=== PATIENT | female | born 1995 | race Caucasian/White ===

== ENCOUNTER 2017-12-26 20:15 | Observation (INO) | payer OTHER ==
[~2017-12-26] VITALS: Ht 177.8 cm; Wt 66.5 kg
[~2017-12-26 20:15] MED LIST: ANTIVERT25 MG PO; IRON325 PO; KEFLEX500 MG PO; MEDROL DOSPAK21 TA1 PO; MEDROLDOSEPACK PO; NORCO 5-325 TA1 EACH PO; ROBAXIN500 MG PO; TRAMADOL 50 MG50 MG PO; [UNRECOGNIZED DRUG - REMARK] PO
[2017-12-26 20:21] VITALS: BP 121/66
[2017-12-26] MEDS ORDERED: IRON325 PO (20:28)
[2017-12-26] MEDS ORDERED: VITAMIN D1000 UNI1 PO (20:28)
[2017-12-26 21:09] LABS: ABSOLUTE BASOPHILS 0.1 thou/uL (0.0-0.2); ABSOLUTE LYMPHOCYTES 2.8 thou/uL (0.8-5.3); ABSOLUTE MONOCYTES 0.9 thou/uL (0.0-1.2); ABSOLUTE NEUTROPHILS 5.5 thou/uL (1.6-8.1); BASOPHILS 0.7 %; EOSINOPHILS 0.4 %; HEMOGLOBIN 13.5 gm/dL (12.0-15.0); LYMPHOCYTES 30.2 %; MCH 29.8 pg (26.0-34.0); MCHC 33.9 g/dL (28.0-37.0); MONOCYTES 9.2 %; MPV 8.8 fl. (7.2-11.1); NUCLEATED RBCS 0 /100WBC; PLATELET COUNT* 258 thou/uL (150-400); POLYS 59.5 %; RBC 4.54 mil/uL (4.20-5.00); RDW-CV 13.3 % (10.5-14.5); WBC 9.3 thou/uL (4.0-11.0)
[2017-12-26 21:13] LABS: URINE BILIRUBIN NEGATIVE (Negative); URINE BLOOD NEGATIVE (Negative); URINE CLARITY CLEAR; URINE COLOR YELLOW; URINE GLUCOSE-RANDOM NEGATIVE (Negative); URINE KETONES NEGATIVE (Negative); URINE LEUKOCYTES-REFLEX 1+ (Negative); URINE NITRITE-REFLEX NEGATIVE (Negative); URINE PROTEIN NEGATIVE (Negative); URINE SPECIFIC GRAVITY 1.015 (1.005-1.030); URINE UROBILINOGEN 0.2 E.U./dl (0.2-1.0)
[2017-12-26 21:18] LABS: CALCIUM 9.1 mg/dL (8.5-10.1); POTASSIUM 3.5 mmol/L (3.5-5.1)
[2017-12-26 21:21] LABS: CASTS None Seen /LPF (None Seen); CRYSTALS None Seen /LPF (None Seen); MUCUS None Seen strn/LPF (None Seen); SQUAMOUS 4-10 Moderate /LPF (0-3); URINE WBC-REFLEX 0-5 Rare /HPF (0-5)
[2017-12-26 21:22] LABS: BACTERIA-REFLEX 1-9 Few /HPF (None Seen); URINE RBC None Seen /HPF (0-2)
[2017-12-26 21:23] LABS: ALBUMIN 3.6 g/dL (3.4-5.0); TOTAL BILIRUBIN 0.2 mg/dL (<0.1-1.0); TOTAL PROTEIN 7.4 g/dL (6.4-8.2)
[2017-12-26 23:55] VITALS: BP 122/66
[2017-12-27 00:05] VITALS: BP 121/78
--- NOTE | 2017-12-27 00:51 | NUR ---
ALERT AND ORIENTED FEMALE ADMITTED TO BED 114 BY CART FROM ER IN STABLE CONDITION. ADMISSION ROUTINES IN PROGRESS. VITAL SIGNS STABLE. MOTHER AT BEDSIDE. CONTINUE TO MONITOR WITH BLOOD SUGAR CHECKS Q2H.
--- NOTE | 2017-12-27 04:18 | NUR ---
PATIENT HAS REMAINED ALERT AND ORIENTED X 4 FROM ADMISSION. BLOOD SUGARS Q2H OF THIS WRITING WITHIN NORMAL LIMITS. SEE PCI. MOTHER AT BEDSIDE. CONTINUE TO MONITOR.
[2017-12-27 09:00] VITALS: BP 118/57
--- NOTE | 2017-12-27 10:48 | EKG ---
[place] [address] ELECTROCARDIOGRAM REPORT Name: HUA CAROLINA Room: [address] ADM [facility].#: [id number] Admission: 12/26/17 Attend Phys: Fawn Balderas Discharge: Date of : [birth year] Report #: [id number] THIS REPORT FOR: //name// [facility] ED Test Date: 2017-12-26 Test Time: 21:17:39 Pat Name: HUA CAROLINA Department: Room: [facility] Gender: F Warehouse And Receiving Supervisor: BRIEN Cuellar : 1995 Requested By: Radha Avalos Order Number: [id number] MD: Paulino Bourgeois Measurements Intervals [place] Rate: 65 P: 78 PA: 186 QRS: 79 QRSD: 98 T: 56 QT: 389 QTc: 405 Interpretive Statements Sinus rhythm Baseline wander in lead(s) I,III,aVL Compared to ECG 07/25/2015 09:42:32 Sinus arrhythmia no longer present Electronically Signed On 12-27-2017 10:48:13 CDT by Paulino Bourgeois [email or web address] <ELECTRONICALLY SIGNED> By: Paulino Bourgeois MD, FACC 12/27/17 1048 16 16 Paulino Bourgeois MD, [facility] /EPI
[2017-12-27 12:10] VITALS: BP 118/57
--- NOTE | 2017-12-27 12:21 | 2DMMODE ---
[place] [address] 2 D/M-MODE ECHOCARDIOGRAM Name: HUA CAROLINA Room: [address] IN [facility]#: [id number] Admission: 12/26/17 Attend Phys: Collin Bales Discharge: Date of : [birth year] Date of Service: 12/27/17 1221 Report #: [id number] THIS REPORT FOR: //name// APPROVED REPORT Study performed: 12/27/2017 10:47:27 EXAM: Comprehensive 2D, Doppler, and color-flow Echocardiogram Patient Location: In-Patient Room #: 114 Status: routine BSA: 1.79 HR: 63 bpm BP: 118/57 mmHg Rhythm: NSR Other Information Study Quality: Good Indications Syncope Hypoglycemic 2D Dimensions LVEF(%): 55.47 (>50%) IVSd: 8.93 (7-11mm) LVOT Diam: 19.71 (18-24mm) LVDd: 51.91 mm PWd: 9.57 (7-11mm) Ascending Ao: 24.93 (22-36mm) LVDs: 36.81 (25-40mm) Aortic Root: 24.68 mm Regan's LVEF: 55.47 % Volumes Left Atrial Volume (Systole) LA ESV Index: 21.10 mL/m2 Aortic Valve AoV Peak Kody.: 1.47 m/s AO Peak Gr.: 8.60 mmHg LVOT Max P.20 mmHg AO Mean Gr.: 4.90 mmHg LVOT Mean P.43 mmHg LVOT Max V: 1.14 m/s AO V2 VTI: 28.58 cm LVOT Mean V: 0.71 m/s APRIL (VTI): 2.28 cm2 LVOT V1 VTI: 21.39 [place] [address] 2 D/M-MODE ECHOCARDIOGRAM Name: HUA CAROLINA Room: [address] IN [facility]#: [id number] Admission: 12/26/17 Attend Phys: Collin Bales Discharge: Date of : [birth year] Date of Service: 12/27/17 1221 Report #: [id number] E/A Ratio: 1.76 MV Decel. Time: 238.27 ms MV E Max Kody.: 0.80 m/s MV PHT: 69.10 ms MVA (PHT): 3.18 cm2 TDI E/Lateral E': 4.00 E/Medial E': 5.71 Medial E' Kody.: 0.14 m/s Lateral E' Kody.: 0.20 m/s Pulmonary Valve PV Peak Kody.: 1.02 m/s PV Peak Gr.: 4.19 mmHg Tricuspid Valve TR Peak Gr.: 16.27 mmHg RVSP: 21.00 mmHg Left Ventricle The left ventricle is normal size. There is normal LV segmental wall motion. There is normal left ventricular wall thickness. Left ventricular systolic function is normal. The left ventricular ejection fraction is within the normal range. LVEF is 55-60%. The left ventricular diastolic function is normal. Right Ventricle Right ventricle is mildly dilated. The right ventricular systolic function is normal. Atria The left atrium size is normal. Right atrium is mildly dilated. Aortic Valve The aortic valve is normal in structure. No aortic regurgitation is present. There is no aortic valvular stenosis. Mitral Valve The mitral valve is normal in structure. Mild mitral regurgitation. No evidence of mitral valve stenosis. Tricuspid Valve The tricuspid valve is normal in structure. Mild to moderate tricuspid regurgitation. The RVSP is ___21____ mmHg. Pulmonic Valve The pulmonary valve is normal in [place] [address] 2 D/M-MODE ECHOCARDIOGRAM Name: HUA CAROLINA Room: [address] IN [facility]#: [id number] Admission: 12/26/17 Attend Phys: Collin Bales Discharge: Date of : [birth year] Date of Service: 12/27/17 1221 Report #: [id number] regurgitation. Great Vessels The aortic root is normal in size. IVC is normal in size and collapses with >50% inspiration Pericardium There is no pericardial effusion. <Conclusion> LVEF is 55-60%. There is normal LV segmental wall motion. The left ventricular diastolic function is normal. The aortic valve is normal in structure. There is no aortic valvular stenosis. No aortic regurgitation is present. Mild mitral regurgitation. Mild to moderate tricuspid regurgitation. The RVSP is ___21____ mmHg. <ELECTRONICALLY SIGNED> By: Neo Casiano MD, FACC 12/27/17 1221 1221 122 Neo Casiano MD, FACC /INF
--- NOTE | 2017-12-27 13:02 | NUR ---
PT VSS STABLE AT THIS TIME. PT AND FAMILY VERBALIZED URGENCY WITH DC DUE TO PCP APPT AT 1430 TODAY. PT ECHO WAS NORMAL WITH MILD REGURGITATION NOTED. IV HAS BEEN REMOVED. PT TO RESUME REGULAR DIET POST DISCHARGE. HOURLY ROUNDING HAS BEEN MAINTAINED THIS SHIFT.
--- NOTE | 2017-12-27 16:40 | NUR ---
THIS NURSE AGREES WITH ALL DOCUMENTATION AND CHARTING COMPLETED BY WYATT BENDER RN.
[2017-12-28 03:08] LABS: GLYCOHEMOGLOBIN (HGB A1C) 5.2 % (4.8-5.6)
[2017-12-28 12:06] LABS: C-PEPTIDE 4.3 ng/mL (1.1-4.4); INSULIN 24.9 uIU/mL (2.6-24.9)
== END 2017-12-27 13:25 | disposition home or self-care (01) ==
LOC: M.ERS 20:15 → M.TBA-ER 23:30 → M.ORTHSURG 23:30
PROVIDERS: Emergency Medicine; ADMIT Internal Medicine
DX: E16.2 Hypoglycemia, unspecified (principal); R51 Headache; R42 Dizziness and giddiness

== ENCOUNTER 2018-02-19 11:56 | Emergency (ER) | payer OTHER ==
[~2018-02-19] VITALS: Ht 177.8 cm; Wt 63.5 kg
[~2018-02-19 11:56] MED LIST changes: +VITAMIN D1000 UNI1 PO
[2018-02-19 12:16] LABS: ABSOLUTE BASOPHILS 0.1 thou/uL (0.0-0.2); ABSOLUTE EOSINOPHILS 0.1 thou/uL (0.0-0.7); ABSOLUTE LYMPHOCYTES 2.4 thou/uL (0.8-5.3); ABSOLUTE MONOCYTES 0.8 thou/uL (0.0-1.2); ABSOLUTE NEUTROPHILS 6.6 thou/uL (1.6-8.1); BASOPHILS 0.7 %; EOSINOPHILS 0.6 %; HEMATOCRIT 40.1 % (37.0-47.0); HEMOGLOBIN 13.5 gm/dL (12.0-15.0); MCH 29.8 pg (26.0-34.0); MCHC 33.7 g/dL (28.0-37.0); MCV 88.5 fL (80.0-100.0); MONOCYTES 8.3 %; MPV 8.4 fl. (7.2-11.1); NUCLEATED RBCS 0 /100WBC; PLATELET COUNT* 277 thou/uL (150-400); POLYS 66.4 %; RBC 4.53 mil/uL (4.20-5.00); RDW-CV 12.9 % (10.5-14.5); WBC 9.9 thou/uL (4.0-11.0)
[2018-02-19 12:23] LABS: CALCIUM 8.7 mg/dL (8.5-10.1); CREATININE 0.8 mg/dL (0.6-1.3); POTASSIUM 3.9 mmol/L (3.5-5.1)
[2018-02-19 12:28] LABS: ALBUMIN 3.6 g/dL (3.4-5.0); TOTAL BILIRUBIN 0.4 mg/dL (<0.1-1.0); TOTAL PROTEIN 7.3 g/dL (6.4-8.2)
[2018-02-19 13:45] VITALS: BP 131/76
--- NOTE | 2018-02-20 10:11 | EKG ---
[place] [address] ELECTROCARDIOGRAM REPORT Name: HUA CAROLINA Room: [facility]#: [id number] Admission: 02/19/18 Attend Phys: Discharge: 02/19/18 Date of : [birth year] Report #: [id number] THIS REPORT FOR: //name// [facility] ED Test Date: 2018-02-19 Test Time: 12:43:37 Pat Name: HUA DAMONMITA Department: Room: Gender: F Operations Technician: : 1995 Requested By: Becca Kirk Order Number: [id number] MD: Paulino Bourgeois Measurements Intervals [place] Rate: 55 P: 48 UT: 162 QRS: 82 QRSD: 90 T: 50 QT: 409 QTc: 392 Interpretive Statements Sinus bradycardia Compared to ECG 12/26/2017 21:17:39 No significant changes Electronically Signed On 02-20-2018 10:11:06 CDT by Paulino Bourgeois [email or web address] <ELECTRONICALLY SIGNED> By: Paulino Bourgeois MD, [facility] 02/20/18 1011 1243 1243 Paulino Bourgeois MD, FACC /EPI
== END 2018-02-19 13:47 | disposition home or self-care (01) ==
LOC: M.ERS 11:56
PROVIDERS: Nurse Practitioner Family
DX: R53.1 Weakness (principal); R55 Syncope and collapse; Z86.2 Personal history of diseases of the blood and blood-forming organs and certain disorders involving the immune mechanism; Z90.89 Acquired absence of other organs; Z88.5 Allergy status to narcotic agent